=== PATIENT | female | born 1985 | race Caucasian/White ===

== ENCOUNTER 2024-05-25 19:58 | Emergency (ER) | payer SELFPAY ==
[2024-05-25 20:22] VITALS: BP 127/89; PULSE 122; RESP 18; TEMP 36.8; O2SAT 97; BMI 24.2
--- NOTE | 2024-05-25 20:35 | W.ED.GENADLT ---
HPI - General Adult General: Chief complaint: General Medical Stated complaint: bp check Time Seen by Provider: 05/25/24 20:29 Source: patient Mode of arrival: ambulatory Limitations: no limitations History of Present Illness: 38-year-old female who states that she just moved here does not with PCP and is out of her HCTZ prescription she states she takes 12.5 mg daily states she just needs a refill she has no other complaints at this time no medical complaints Associated symptoms: Deny chest pain, dyspnea, headache(s), nausea, rash or vomiting Related Data Previous Rx's Medication Instructions Recorded hydrochlorothiazide 12.5 mg tablet 12.5 mg PO DAILY #30 tabs 05/25/24 Allergies Allergy/AdvReac Type Severity Reaction Status Date / Time amoxicillin [From Augmentin] Allergy Unknown Verified 05/25/24 20:26 clavulanic acid Allergy Unknown Verified 05/25/24 20:26 [From Augmentin] Review of Systems Const: Denies: fever(s), chills, body aches or change in appetite ENMT: Denies: throat pain or dental pain Card: Denies: chest pain Resp: Denies: dyspnea GI: Denies: abdominal pain, nausea, vomiting or diarrhea Musc: Denies: neck pain or back pain Skin/Breast: Denies: rash Neuro: Denies: headache(s) Physical Exam Const: COMMON NORMALS: no acute distress, patient oriented x3 and healthy appearing HENMT: COMMON NORMALS: normocephalic and atraumatic HEAD & SCALP: normocephalic and atraumatic Eye: COMMON NORMALS: conjunctivae normal CONJUNCTIVA: Yes conjunctivae normal Neck/C-Spine: COMMON NORMALS: full ROM and supple Chest: COMMONS NORMALS: normal inspection of the chest Resp: COMMON NORMALS: normal respiratory effort Extremity: COMMON NORMALS: normal to inspection and full ROM Neuro: COMMON NORMALS: patient oriented x3, moves all extremities and no focal motor deficits Psych: COMMON NORMALS: mental status grossly normal, Normal thought process present and cooperative THOUGHT PROCESS: Normal thought process present Skin: COMMON NORMALS: no rashes or lesions noted and no wounds GENERAL SKIN EXAM: no rashes or lesions noted Course Vital Signs: Vital signs: Vital Signs Temperature 98.3 F 05/25/24 20:22 Pulse Rate 122 H 05/25/24 20:22 Respiratory Rate 18 05/25/24 20:22 Blood Pressure 127/89 05/25/24 20:22 Pulse Oximetry 97 05/25/24 20:22 Oxygen Delivery Me thod Room Air 05/25/24 20:22 MDM - General Adult Medical Decision Making Patient presents here with medication refill patient's well-appearing here has no medical complaints will refill HCTZ patient stable for discharge follow-up PCP return if worsening Medical Records I reviewed the patient's medical records. No radiology studies performed this visit Discharge Plan Discharge Patient Disposition: Home Clinical Impression: Medication refill Condition: Stable Prescriptions: New hydrochlorothiazide 12.5 mg tablet 12.5 mg PO DAILY Qty: 30 0RF Discharge Orders: Discharge ED (Routine); Ordered 05/25/24 Ordered By: Vy Anna Discharge Diet: Advance as tolerated Discharge Activity: Resume usual activity Patient Instructions: Medicine Refill (ED) Coding Level of Care Code ED Vegetable Washing Machine Operator for Edd Melchor
[2024-05-25 20:41] VITALS: BP 122/94; PULSE 127; RESP 16; O2SAT 94
== END 2024-05-25 20:42 | disposition home or self-care (01) ==
PROVIDERS: Emergency Provider Emergency Medicine
DX: Z76.0 Encounter for issue of repeat prescription (principal)
CPT/HCPCS: 99283

== ENCOUNTER 2024-09-23 08:05 | Emergency (ER) | payer MEDICAID, SELFPAY ==
[2024-09-23 08:28] VITALS: BP 144/89; PULSE 88; RESP 18; TEMP 36.7; O2SAT 99; BMI 24.2
--- NOTE | 2024-09-23 09:49 | US_ITS ---
WS: [id number] EARLY OBSTETRICAL ULTRASOUND (<14 WEEKS). HISTORY: vaginal bleeding in early COMPARISON: None available. Single intrauterine gestational sac is identified. Cardiac activity at 169 BPM. [place]-rump length christine sures 2.7 cm which corresponds to a gestation of 9w4d. Normal-appearing yolk sac and amnion demonstra justin. Large subchorionic hemorrhage. Complex subchorionic hemorrhage along the anterior gestational sa c extends over a length of at least 7.0 cm with a diameter of 0.9 cm. No free fluid. Normal size ovaries with no mass. US/US OB <= 14 weeks fetus [id number] IMPRESSION: 1. Single intrauterine gestation of 9w4d with an EDC of 04/24/2025. 2. Large subchorionic hemorrhage along the anterior gestational sac. Hemorrhag e measures 7.0 x 0.9 cm.
[2024-09-23 10:08] LABS: Bilirubin Urine Negative (Negative); Blood Urine 2+ (Negative); Glucose Urine UA Negative (Normal); Ketones Urine 1+ (Negative); Leukocyte Esterase Urine 1+ (Negative); Nitrate Urine Negative (Negative); Protein Urine Negative (Negative); Specific Gravity, Urine 1.015 (1.005-1.030); Urine Appearance Clear (CLEAR); Urine Color Yellow (Yellow); Urobilinogen Urine 0.2 mg/dL (Negative); pH Urine 6.5 (5-7)
--- NOTE | 2024-09-23 10:08 | ED_ITS ---
HPI - Female Genitourinary 2 General: Chief complaint: Vaginal Bleeding Stated complaint: spotting (10 wks preg) Time Seen by Provider: 09/23/24 08:36 History of Present Illness: 39-year-old female presents to the ER [facility] complaint of spotting and bleeding discharge just prior to arrival earlier this morning patient endorses she is roughly 10 weeks per dates she reports this is her seventh with no previous complications with her previous pregnancies. Patient denies any abdominal pain or flank pain or back pain. Patient presents to the ER with her significant other for further assessment and management Associated symptoms: Deny abdominal pain, headache(s) or nausea Related Data Home Medications Medication Instructions Recorded Confirmed vit no.95-ferrous 1 tab PO DAILY 09/23/24 09/23/24 fumarate 28 mg-folic acid 800 mcg tablet () Allergies Allergy/AdvReac Type Severity Reaction Status Date / Time amoxicillin [From Augmentin] Allergy Unknown Verified 05/25/24 20:26 clavulanic acid Allergy Unknown Verified 05/25/24 20:26 [From Augmentin] Review of Systems 2 General: Reports: 10 or more systems reviewed and unremarkable except in HPI and below Const: Denies: fever(s), chills, fatigue or malaise Eyes: Denies: change in vision or blurry vision Card: Denies: chest pain or palpitations Resp: Denies: dyspnea or productive cough GI: Denies: abdominal pain, nausea or vomiting : Reports: vaginal bleeding; Denies: flank pain Musc: Denies: extremity pain or extremity swelling Skin/Breast: Denies: rash or pruritus Neuro: Denies: headache(s) Psych: Denies: anxiety or depression Hubert/Lymph: Denies: easy bleeding All/Imm: Denies: urticaria, throat swelling or facial swelling Physical Exam 2 Const: COMMON NORMALS: no acute distress, patient oriented x3 and healthy appearing HENMT: COMMON NORMALS: normocephalic and atraumatic HEAD & SCALP: n ormocephalic and atraumatic Eye: COMMON NORMALS: Equal, round and reactive pupils present and EOMs intact bilaterally PUPIL: Yes Equal, round and reactive pupils present Neck/C-Spine: COMMON NORMALS: full ROM, supple and no JVD Lymph: LYMPHATIC: no lymphadenopathy noted Chest: COMMONS NORMALS: normal inspection of the chest and normal palpation of entire chest wall Resp: COMMON NORMALS: normal respiratory effort, No retractions and clear to auscultation bilaterally EFFORT & INSPECTION: Yes able to speak in complete sentences and Yes symmetric chest movement AUSCULTATION: clear to auscultation bilaterally Cardio: COMMON NORMALS: no JVD, regular rate and regular rhythm RATE: r egular rate RHYTHM: regular rhythm GI: COMMON NORMALS: Normal to inspection, nondistended, normoactive bowel sounds present, Soft to palpation and non-tender INSPECTION: Yes normal to inspection PALPATION: Yes Soft to palpation : COMMON NORMALS: Yes no CVA tenderness BLADDER/KIDNEY EXAM: Yes no CVA tenderness Back/Pelvis: COMMON NORMALS: no CVA tenderness Extremity: COMMON NORMALS: normal to inspection and full ROM Neuro: COMMON NORMALS: patient oriented x3, CN's II-XII intact bilaterally, moves all extremities and no focal motor deficits Psych: COMMON NORMALS: mental status grossly normal, Normal thought process present, cooperative and normal affect THOUGHT PROCESS: Normal thought process present Skin: COMMON NORMALS: no rashes or lesions noted GENERAL SKIN EXAM: no rashes or lesions noted Course 2 Vital Signs: Vital signs: Vital Signs Temperature 98.1 F 09/23/24 08:28 Pulse Rate 88 09/23/24 08:28 Respiratory Rate 18 09/23/24 08:28 Blood Pressure 144/89 09/23/24 08:28 Pulse Oximetry 99 09/23/24 08:28 Oxygen Delivery Me thod Room Air 09/23/24 08:28 MDM - Female Medical Decision Making Due to patient's symptoms and condition lab work and imaging will be obtained we will continue to follow. Patient was found to have a large subchorionic hemorrhage but IUP at approximately 9-1/2 weeks patient was dvised if her bleeding gets worse to return to the ER for further assessment and management in which otherwise to further follow-up with RESIDENTIAL MORTGAGE MANAGER for further eval Lab Data 09/23/24 10:07 09/23/24 10:07 Radiology Impressions Ultrasound 09/23/24 09:49 IMPRESSION: 1. Single intrauterine gestation of 9w4d with an EDC of 04/24/2025. 2. Large subchorionic hemorrhage along the anterior gestational sac. Hemorrhage measures 7.0 x 0.9 cm. Laboratory Results WBC 12.44 10^3/uL (3.29-11.43) H 09/23/24 10:07 RBC 4.50 10^6/uL (3.85-5.65) 09/23/24 10:07 Hgb 14.20 g/dL (11.27-16.99) 09/23/24 10:07 Hct 40.3 % (36-47) 09/23/24 10:07 MCV 89.6 fl (85-98) 09/23/24 10:07 MCH 31.6 pg (27-33) 09/23/24 10:07 MCHC 35.2 g/dL (30-55) 09/23/24 10:07 RDW 12.4 % (12.1-15.1) 09/23/24 10:07 Plt Count 363 10^3/cmm (157-399) 09/23/24 10:07 MPV 8.8 fL (7.4-10.4) 09/23/24 10:07 Neut % (Auto) 74.3 % 09/23/24 10:07 Lymph % (Auto) 16.8 % 09/23/24 10:07 Clarke % (Auto) 7.2 % 09/23/24 10:07 Eos % (Auto) 0.7 % 09/23/24 10:07 Baso % (Auto) 0.6 % 09/23/24 10:07 Neut # (Auto) 9.25 10^3/uL (1.8-7.7) H 09/23/24 10:07 Lymph # (Auto) 2.1 10^3/uL (0.8-4.8) 09/23/24 10:07 [place] # (Auto) 0.9 10^3/uL (0.2-0.9) 09/23/24 10:07 Eos # (Auto) 0.1 10^3/uL (0.0-0.8) 09/23/24 10:07 Baso # (Auto) 0.1 10^3/uL (0.0-0.1) 09/23/24 10:07 Nucleated RBC % (auto) 0 % 09/23/24 10:07 Nucleated RBCs # 0.0 /100WBC 09/23/24 10:07 Sodium 136 mmol/L (136-145) 09/23/24 10:07 Potassium 3.6 mmol/L (3.5-5.1) 09/23/24 10:07 Chloride 101 mmol/L (98-107) 09/23/24 10:07 Carbon Dioxide 23 mmol/L (22-29) 09/23/24 10:07 Anion Gap 15.6 (5-19) 09/23/24 10:07 BUN 13 mg/dL (6-20) 09/23/24 10:07 Creatinine 0.4 mg/dL (0.5-0.9) L 09/23/24 10:07 GFR Calculation 178.6 mL/min (90-130) H 09/23/24 10:07 Glucose 89 mg/dL (65-115) 09/23/24 10:07 Calculated Osmolality 282 mOsm/kg (285-295) L 09/23/24 10:07 Calcium 8.8 mg/dL (8.5-10.5) 09/23/24 10:07 Total Bilirubin 0.5 mg/dL (0.15-1.2) 09/23/24 10:07 AST 31 U/L (0-32) 09/23/24 10:07 ALT 48 U/L (0-33) H 09/23/24 10:07 Alkaline Phosphatase 35 U/L (35-105) 09/23/24 10:07 Total Protein 6.8 g/dL (6.6-8.7) 09/23/24 10:07 Albumin 4.1 g/dL (3.5-5.2) 09/23/24 10:07 Globulin 2.7 g/dL (1.3-4.6) 09/23/24 10:07 Ser , Semi-Qnt 115727.00 mIU/mL 09/23/24 10:07 Urine Color Yellow (Yellow) 09/23/24 10:00 Urine Appearance Clear (CLEAR) 09/23/24 10:00 Urine pH 6.5 (5-7) 09/23/24 10:00 Ur Specific [place] 1.015 (1.005-1.030) 09/23/24 10:00 Urine Protein Negative (Negative) 09/23/24 10:00 Urine Glucose (UA) Negative (Normal) 09/23/24 10:00 Urine Ketones 1+ (Negative) H 09/23/24 10:00 Urine Blood 2+ (Negative) A 09/23/24 10:00 Urine Nitrate Negative (Negative) 09/23/24 10:00 Urine Bilirubin Negative (Negative) 09/23/24 10:00 Urine Urobilinogen 0.2 mg/dL (Negative) 09/23/24 10:00 Ur Leukocyte Esterase 1+ (Negative) A 09/23/24 10:00 Urine RBC 0-2 /hpf (0-2) 09/23/24 10:00 Urine WBC 21-50 /hpf (0-5) H 09/23/24 10:00 Ur Squamous Epith Cells 0-5 /hpf (0-5) 09/23/24 10:00 Amorphous Sediment Not Reportable 09/23/24 10:00 Urine Bacteria None seen /hpf (NONE) 09/23/24 10:00 Hyaline Casts 0.40 /lpf 09/23/24 10:00 Blood Type A Positive 09/23/24 10:07 Rho(D) Type Rh positive 09/23/24 10:07 All radiology interpretation(s) finalized by discharge Discharge Plan Discharge Patient Disposition: Home Clinical Impression: Subchorionic hemorrhage in second trimester Condition: Stable Prescriptions: No Action PNV cmb#95-ferrous fumarate-FA [] 28 mg iron- 800 mcg Tablet 1 tab PO DAILY Discharge Orders: Discharge ED (Routine); Ordered 09/23/24 Ordered By: Naeem Coronado Discharge Diet: Regular Discharge Activity: Resume usual activity Patient Instructions: Subchorionic Hemorrhage (ED) Activity Restrictions/Additional Instructions: Please further follow-up with your RESIDENTIAL MORTGAGE MANAGER doctor in the next 22 weeks absolutely no vaginal intercourse until cleared by OB with strict pelvic rest if your bleeding increases or gets worse please return to the ER for further assessment and management. Coding Level of Care Code ED Equity Director for Edd Melchor
[2024-09-23 10:11] LABS: Add Urine Microscopic? YES; Bacteria Urine None Seen /hpf; RBC Urine 0-2 /hpf (0-2); Squamous Epithelial Cell Urine 0-5 /hpf (0-5); WBC Urine 21-50 /hpf (0-5)
[2024-09-23 10:13] LABS: Basophils # 0.1 10^3/uL (0.0-0.1); Basophils % 0.6 %; Eosinophils # 0.1 10^3/uL (0.0-0.8); Eosinophils % 0.7 %; Hematocrit 40.3 % (36-47); Lymphocytes # 2.1 10^3/uL (0.8-4.8); Lymphocytes % 16.8 %; Mean Corpuscular HGB Conc 35.2 g/dL (30-55); Mean Corpuscular Hemoglobin 31.6 pg (27-33); Mean Corpuscular Volume 89.6 fl (85-98); Mean Platelet Volume 8.8 fL (7.4-10.4); Monocytes # 0.9 10^3/uL (0.2-0.9); Monocytes % 7.2 %; Neutrophils # 9.25 10^3/uL (1.8-7.7); Neutrophils % 74.3 %; Nucleated Red Blood Cells % 0 %; Platelet Count 363 10^3/cmm (157-399); Red Cell Distribution Width 12.4 % (12.1-15.1); White Blood Count 12.44 10^3/uL (3.29-11.43)
[2024-09-23 10:23] LABS: Add Urine Culture? Yes
[2024-09-23 10:32] VITALS: BP 145/81; PULSE 86; O2SAT 98
[2024-09-23 10:58] LABS: Alanine Aminotransferase 48 U/L (0-33); Albumin Level 4.1 g/dL (3.5-5.2); Alkaline Phosphatase 35 U/L (35-105); Anion Gap 15.6 (5-19); Aspartate Amino Transferase 31 U/L (0-32); Blood Urea Nitrogen 13 mg/dL (6-20); Calcium 8.8 mg/dL (8.5-10.5); Carbon Dioxide 23 mmol/L (22-29); Chloride 101 mmol/L (98-107); Globulin 2.7 g/dL (1.3-4.6); Glomerular Filtration Rate 178.6 mL/min (90-130); Glucose 89 mg/dL (65-115); Osmolality Calculated 282 mOsm/kg (285-295); Potassium 3.6 mmol/L (3.5-5.1); Sodium 136 mmol/L (136-145); Total Bilirubin 0.5 mg/dL (0.15-1.2); Total Protein 6.8 g/dL (6.6-8.7)
[2024-09-23 12:03] VITALS: BP 140/88; PULSE 81; O2SAT 99
== END 2024-09-23 12:48 | disposition home or self-care (01) ==
PROVIDERS: Emergency Provider Emergency Medicine
DX: O20.8 Other hemorrhage in early pregnancy (principal); Z3A.09 9 weeks gestation of pregnancy
CPT/HCPCS: 76801; 80053; 81001; 84702; 85025; 86900; 87086; 99284

== ENCOUNTER → 2024-10-05 08:08 | Outpatient (BNVA) | payer MEDICAID, SELFPAY | PROVIDERS: Visit Provider Nurse Practitioner Women's Health | DX: N91.2 Amenorrhea, unspecified (principal); Z32.01 Encounter for pregnancy test, result positive; Z87.59 Personal history of other complications of pregnancy, childbirth and the puerperium | CPT/HCPCS: 81025 ==

== ENCOUNTER → 2024-10-12 15:23 | Outpatient (BNVA) | payer MEDICAID, SELFPAY | PROVIDERS: Visit Provider Nurse Practitioner Women's Health | DX: O46.8X2 Other antepartum hemorrhage, second trimester (principal) | CPT/HCPCS: 76801 ==

== ENCOUNTER → 2024-10-18 11:28 | Outpatient (BNVA) | payer MEDICAID, SELFPAY | PROVIDERS: Visit Provider Nurse Practitioner Women's Health | DX: O09.70 Supervision of high risk pregnancy due to social problems, unspecified trimester (principal); O09.299 Supervision of pregnancy with other poor reproductive or obstetric history, unspecified trimester; Z64.1 Problems related to multiparity | CPT/HCPCS: 80307; 81000; 84443; 85025; 86592; 86762; 86803; 86850; 86900; 87086; 87340; 87491; 87591; 87661; 87806 ==

== ENCOUNTER → 2024-10-19 00:01 | Outpatient (BNVA) | payer MEDICAID, SELFPAY | PROVIDERS: Visit Provider Nurse Practitioner Women's Health | DX: O09.72 Supervision of high risk pregnancy due to social problems, second trimester (principal) | CPT/HCPCS: 87522 ==

== ENCOUNTER → 2024-10-28 15:23 | Outpatient (BNVA) | payer MEDICAID, SELFPAY | PROVIDERS: Visit Provider Obstetrics & Gynecology | DX: O09.70 Supervision of high risk pregnancy due to social problems, unspecified trimester (principal) | CPT/HCPCS: 84315; 87624 ==

== ENCOUNTER → 2024-11-04 10:16 | Outpatient (BNVA) | payer MEDICAID, SELFPAY | PROVIDERS: Visit Provider Nurse Practitioner Women's Health | DX: F19.11 Other psychoactive substance abuse, in remission (principal); O09.70 Supervision of high risk pregnancy due to social problems, unspecified trimester | CPT/HCPCS: 80053 ==

== ENCOUNTER → 2024-11-23 14:02 | Outpatient (BNVA) | payer MEDICAID, SELFPAY | PROVIDERS: Visit Provider Nurse Practitioner Women's Health | DX: O09.70 Supervision of high risk pregnancy due to social problems, unspecified trimester (principal); O09.299 Supervision of pregnancy with other poor reproductive or obstetric history, unspecified trimester | CPT/HCPCS: 82105; 84315; 84550 ==

== ENCOUNTER → 2024-12-20 14:30 | Outpatient (BNVA) | payer MEDICAID, SELFPAY | PROVIDERS: Visit Provider Obstetrics & Gynecology | DX: O09.70 Supervision of high risk pregnancy due to social problems, unspecified trimester (principal); Z3A.22 22 weeks gestation of pregnancy | CPT/HCPCS: 76805 ==

== ENCOUNTER → 2024-12-28 15:59 | Outpatient (BNVA) | payer MEDICAID, SELFPAY | PROVIDERS: Visit Provider Obstetrics & Gynecology | DX: O09.70 Supervision of high risk pregnancy due to social problems, unspecified trimester (principal) | CPT/HCPCS: 84315 ==

== ENCOUNTER → 2025-01-16 14:33 | Outpatient (BNVA) | payer MEDICAID, SELFPAY | PROVIDERS: Visit Provider Obstetrics & Gynecology | DX: O09.70 Supervision of high risk pregnancy due to social problems, unspecified trimester (principal); O09.299 Supervision of pregnancy with other poor reproductive or obstetric history, unspecified trimester; Z34.90 Encounter for supervision of normal pregnancy, unspecified, unspecified trimester; O14.00 Mild to moderate pre-eclampsia, unspecified trimester | CPT/HCPCS: 80053; 84315; 85025 ==

== ENCOUNTER 2025-01-18 15:11 | Outpatient (CLI) | payer MEDICAID, SELFPAY ==
[2025-01-18 16:04] LABS: Total Volume, Urine 2950 mL
[2025-01-18 17:16] LABS: Urine Total Protein 4.3 mg/dL (0-150); Urine Total Protein 24 Hour 126.9 mg/24hr (0-150)
== END 2025-01-18 15:12 | disposition home or self-care (01) ==
LOC: LAB 15:14
PROVIDERS: Visit Provider Obstetrics & Gynecology
DX: O09.299 Supervision of pregnancy with other poor reproductive or obstetric history, unspecified trimester (principal); O14.00 Mild to moderate pre-eclampsia, unspecified trimester
CPT/HCPCS: 84156

== ENCOUNTER → 2025-01-26 13:08 | Outpatient (BNVA) | payer MEDICAID, SELFPAY | PROVIDERS: Visit Provider Obstetrics & Gynecology | DX: Z34.90 Encounter for supervision of normal pregnancy, unspecified, unspecified trimester (principal) | CPT/HCPCS: 84315 ==

== ENCOUNTER → 2025-01-30 13:56 | Outpatient (BNVA) | payer MEDICAID, SELFPAY | PROVIDERS: Visit Provider Obstetrics & Gynecology | DX: O16.9 Unspecified maternal hypertension, unspecified trimester (principal) | CPT/HCPCS: 84315 ==

== ENCOUNTER → 2025-02-16 14:07 | Outpatient (BNVA) | payer MEDICAID, SELFPAY | PROVIDERS: Visit Provider Nurse Practitioner Women's Health | DX: Z34.90 Encounter for supervision of normal pregnancy, unspecified, unspecified trimester (principal) | CPT/HCPCS: 82950; 84315 ==

== ENCOUNTER → 2025-03-07 15:37 | Outpatient (BNVA) | payer MEDICAID, SELFPAY | PROVIDERS: Visit Provider Obstetrics & Gynecology | DX: O09.299 Supervision of pregnancy with other poor reproductive or obstetric history, unspecified trimester (principal); O09.70 Supervision of high risk pregnancy due to social problems, unspecified trimester; O16.9 Unspecified maternal hypertension, unspecified trimester; Z3A.34 34 weeks gestation of pregnancy | CPT/HCPCS: 76816 ==

== ENCOUNTER → 2025-03-13 15:32 | Outpatient (BNVA) | payer MEDICAID, SELFPAY | PROVIDERS: Visit Provider Obstetrics & Gynecology | DX: O09.293 Supervision of pregnancy with other poor reproductive or obstetric history, third trimester (principal) | CPT/HCPCS: 84315 ==

== ENCOUNTER 2025-03-16 11:09 | Outpatient (CLI) | payer MEDICAID, SELFPAY ==
[2025-03-16 12:32] LABS: Total Volume, Urine 2550 mL
[2025-03-16 12:36] LABS: Urine Total Protein 24 Hour 127.5 mg/24hr (0-150)
== END 2025-03-16 11:10 | disposition home or self-care (01) ==
PROVIDERS: Visit Provider Obstetrics & Gynecology
DX: O16.9 Unspecified maternal hypertension, unspecified trimester (principal)
CPT/HCPCS: 84156

== ENCOUNTER 2025-03-16 12:07 | Outpatient (CLI) | payer MEDICAID, SELFPAY ==
--- NOTE | 2025-03-16 12:11 | US_ITS ---
WS: [id number] BIOPHYSICAL PROFILE AMNIOTIC FLUID HISTORY: nonreactive nst at clinic COMPARISON: 03/07/2025 position: position is not documented. Cardiac activity: 142 bpm. Cervix: Limited visualization. Placenta: Posterior, no previa or abruption. Placenta grade: 2 Parameters are as follows: Breathin Movement: 2 Tone: 2 Fluid volume: 2 Amniotic Fluid Index: 12.5 cm. US/[place] [address]280 IMPRESSION: 1. Biophysical profile score: 8/8. 2. Normal amniotic fluid. 3. Poorly visualized cervix. 4. position not documented.
[2025-03-16 12:15] VITALS: RESP 18; TEMP 36.9
[2025-03-16 12:16] VITALS: BP 130/80; PULSE 86
[2025-03-16 12:31] VITALS: BP 121/76; PULSE 88
[2025-03-16 12:35] VITALS: BMI 34.1
[2025-03-16 12:46] VITALS: BP 119/80; PULSE 86
[2025-03-16 13:01] VITALS: BP 119/79; PULSE 87
== END 2025-03-16 13:13 | disposition home or self-care (01) ==
LOC: OPOB 12:08 → OBGYN 12:08
PROVIDERS: Visit Provider Obstetrics & Gynecology
DX: O13.9 Gestational [pregnancy-induced] hypertension without significant proteinuria, unspecified trimester (principal); Z3A.00 Weeks of gestation of pregnancy not specified
CPT/HCPCS: 59025; 76819; 99211

== ENCOUNTER → 2025-03-20 08:23 | Outpatient (BNVA) | payer MEDICAID, SELFPAY | PROVIDERS: Visit Provider Obstetrics & Gynecology | DX: Z34.90 Encounter for supervision of normal pregnancy, unspecified, unspecified trimester (principal) | CPT/HCPCS: 84315 ==

== ENCOUNTER 2025-03-23 09:35 | Outpatient (CLI) | payer MEDICAID, SELFPAY ==
[2025-03-23] VITALS (8 sets, daily range): BP systolic 132–141; BP diastolic 84–89; PULSE 86–103; RESP 18
== END 2025-03-23 10:54 | disposition home or self-care (01) ==
LOC: OPOB 09:38 → OBGYN 09:38
PROVIDERS: Visit Provider Obstetrics & Gynecology
DX: O13.9 Gestational [pregnancy-induced] hypertension without significant proteinuria, unspecified trimester (principal); Z3A.00 Weeks of gestation of pregnancy not specified
CPT/HCPCS: 59025

== ENCOUNTER → 2025-03-27 13:24 | Outpatient (BNVA) | payer MEDICAID, SELFPAY | PROVIDERS: Visit Provider Nurse Practitioner Women's Health | DX: O16.9 Unspecified maternal hypertension, unspecified trimester (principal); O09.893 Supervision of other high risk pregnancies, third trimester; Z3A.36 36 weeks gestation of pregnancy | CPT/HCPCS: 76816; 76819; 84315; 87081 ==

== ENCOUNTER → 2025-04-03 12:39 | Outpatient (BNVA) | payer MEDICAID, SELFPAY | PROVIDERS: Visit Provider Obstetrics & Gynecology | DX: O40.9XX0 Polyhydramnios, unspecified trimester, not applicable or unspecified (principal) | CPT/HCPCS: 76819 ==

== ENCOUNTER → 2025-04-06 14:25 | Outpatient (BNVA) | payer MEDICAID, SELFPAY | PROVIDERS: Visit Provider Obstetrics & Gynecology | DX: O23.599 Infection of other part of genital tract in pregnancy, unspecified trimester (principal); A59.01 Trichomonal vulvovaginitis | CPT/HCPCS: 87661 ==

== ENCOUNTER → 2025-04-10 15:11 | Outpatient (BNVA) | payer MEDICAID, SELFPAY | PROVIDERS: Visit Provider Obstetrics & Gynecology | DX: O09.299 Supervision of pregnancy with other poor reproductive or obstetric history, unspecified trimester (principal); O32.1XX0 Maternal care for breech presentation, not applicable or unspecified; Z3A.38 38 weeks gestation of pregnancy | CPT/HCPCS: 76819; 84315 ==

== ENCOUNTER → 2025-04-17 13:33 | Outpatient (BNVA) | payer MEDICAID, SELFPAY | PROVIDERS: Visit Provider Obstetrics & Gynecology | DX: O16.9 Unspecified maternal hypertension, unspecified trimester (principal) | CPT/HCPCS: 76816; 76819; 84315 ==

== ENCOUNTER 2025-04-24 17:36 | Outpatient (CLI) | payer MEDICAID, SELFPAY ==
[2025-04-24] VITALS (8 sets, daily range): BP systolic 134–146; BP diastolic 86–108; PULSE 93–117; RESP 16; O2SAT 97; BMI 33.9
[2025-04-24 18:51] LABS: Glucose Urine UA Negative (Normal); Nitrate Urine Negative (Negative); Specific Gravity, Urine 1.007 (1.005-1.030)
[2025-04-24 18:52] LABS: Hematocrit 34.6 % (36-47); Hemoglobin 11.80 g/dL (11.27-16.99); Mean Corpuscular HGB Conc 34.1 g/dL (30-55); Mean Corpuscular Hemoglobin 32.0 pg (27-33); Mean Corpuscular Volume 93.8 fl (85-98); Nucleated Red Blood Cells % 0 %; Platelet Count 384 10^3/cmm (157-399); Red Blood Count 3.69 10^6/uL (3.85-5.65); White Blood Count 12.70 10^3/uL (3.29-11.43)
[2025-04-24 18:53] LABS: Add Urine Microscopic? YES
[2025-04-24 18:58] LABS: PCP Screen Urine Negative (Negative)
[2025-04-24 19:04] LABS: Alanine Aminotransferase 12 U/L (0-33); Albumin Level 3.2 g/dL (3.5-5.2); Alkaline Phosphatase 163 U/L (35-105); Blood Urea Nitrogen 6 mg/dL (6-20); Calcium 8.6 mg/dL (8.5-10.5); Carbon Dioxide 24 mmol/L (22-29); Chloride 104 mmol/L (98-107); Creatinine Clr Calc Pharmacy 152.9372; Globulin 3.1 g/dL (1.3-4.6); Glucose 89 mg/dL (65-115); Osmolality Calculated 287 mOsm/kg (285-295); Sodium 140 mmol/L (136-145); Total Protein 6.3 g/dL (6.6-8.7); Uric Acid 5.3 mg/dL (2.4-5.7)
[2025-04-24 19:11] LABS: Anion Gap 15.9 (5-19); Aspartate Amino Transferase 27 U/L (0-32); Potassium 3.9 mmol/L (3.5-5.1); UPRO/UCREAT Ratio 0.18 mg/mg CR
== END 2025-04-24 19:55 | disposition home or self-care (01) ==
LOC: OPOB 17:40 → OBGYN 17:41
PROVIDERS: Visit Provider Obstetrics & Gynecology
DX: O13.9 Gestational [pregnancy-induced] hypertension without significant proteinuria, unspecified trimester (principal); Z3A.00 Weeks of gestation of pregnancy not specified
CPT/HCPCS: 36415; 59025; 80053; 80306; 81001; 82570; 83615; 84156; 84315; 84550; 85025; 99211

== ENCOUNTER 2025-04-25 15:56 | Observation (INO) | payer MEDICAID, SELFPAY ==
[2025-04-25] VITALS (37 sets, daily range): BP systolic 105–168; BP diastolic 55–110; PULSE 75–115; RESP 18
[2025-04-25 15:17] LABS: Hematocrit 36.1 % (36-47); Hemoglobin 12.10 g/dL (11.27-16.99); Mean Corpuscular HGB Conc 33.5 g/dL (30-55); Mean Corpuscular Hemoglobin 31.3 pg (27-33); Mean Corpuscular Volume 93.5 fl (85-98); Nucleated Red Blood Cells % 0 %; Platelet Count 386 10^3/cmm (157-399); Red Blood Count 3.86 10^6/uL (3.85-5.65); White Blood Count 12.87 10^3/uL (3.29-11.43)
[2025-04-25 15:22] LABS: Glucose Urine UA Negative (Normal); Nitrate Urine Negative (Negative); Specific Gravity, Urine 1.014 (1.005-1.030)
[2025-04-25 15:24] LABS: Add Urine Microscopic? YES
[2025-04-25 15:28] LABS: PCP Screen Urine Negative (Negative)
[2025-04-25 15:36] LABS: Alanine Aminotransferase 12 U/L (0-33); Albumin Level 3.3 g/dL (3.5-5.2); Alkaline Phosphatase 175 U/L (35-105); Anion Gap 15.6 (5-19); Aspartate Amino Transferase 21 U/L (0-32); Blood Urea Nitrogen 9 mg/dL (6-20); Calcium 8.8 mg/dL (8.5-10.5); Carbon Dioxide 25 mmol/L (22-29); Chloride 106 mmol/L (98-107); Creatinine Clr Calc Pharmacy 155.2111; Globulin 3.1 g/dL (1.3-4.6); Glucose 96 mg/dL (65-115); Osmolality Calculated 295 mOsm/kg (285-295); Potassium 3.6 mmol/L (3.5-5.1); Sodium 143 mmol/L (136-145); Total Protein 6.4 g/dL (6.6-8.7); Uric Acid 5.4 mg/dL (2.4-5.7)
[2025-04-25 15:43] LABS: UPRO/UCREAT Ratio 0.15 mg/mg CR
[2025-04-25] MEDS: oxytocin 30 UNIT/500 ML BAG IV (16:30)
--- NOTE | 2025-04-25 17:25 | PC.NURSE ---
Discussed with pt that Dr. Lee would like to start magnesium sulfate due to her severely elevated blood pressures. Explained that her blood pressure are in a severe range which puts her at risk for having seizures or even stroke. Discussed the purpose of magnesium as a preventative for seizures. Explained the need for dejesus catheter to closely monitor urine output. At this time pt would like to decline the use of magnesium and would like to try non pharmacological options to lower her blood pressure such as decreasing environmental stimulus and relaxation. MD notified of patients decision.
[2025-04-25 17:32] LABS: Neisseria Gonorrhea NOT DETECTED (Negative)
--- NOTE | 2025-04-25 17:38 | PM.OBGYHP ---
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 Tolbert is a 39 year old patient with LMP of unknown, PANFILO 04/24/25 based off first ultrasound, placing her at 40-1/7 weeks today. Came today for NST after leaving yesterday AMA. It was recommended she stayed for elective induction yesterday due to >40wks,hx of preeclampsia and borderline BPs . Labs have remained negative so far including today. When she arrived today severe range BPs were recorded within 30 minutes. Severe pressure protocol triggered and initial IV pressor provided. Pt declined Mg use after being educated about its use including risks and benefits. NST reactive with occasional contractions but no decelerations. Labetalol po initiated to a daily dose start of 100mg bid . Patient has agreed to stay for induction. Repeat BPs after IV labetalol not in severe range. c/o swelling no headache, blurry vision, abdominal pain + movements HEPATITIS C POSITIVE - Hep C antibody and RNA positive, she was not aware of infection prior to testing - Seen by ID on 01/19/2023, dx with chronic hep c infection - Discussed delaying treatment until after delivery due to unknown safety of treatment during . Patient is ok with this. - LFTs WNL SUPERVISION OF HIGH RISK DUE TO SOCIAL PROBLEMS - Hx of drug use, reports last use on 01/19/23 - Hep C positive - Smokes 1/2 PPD HX OF PRE-E IN PRIOR - Hx of pre-e in prior pregnancies x 6 all delivered at 40 weeks and no medication required for BP management per patient - Reports that she had seizure 3 months after delivery of her 7th child. - Early CMP and 24 hr done and WNL - Smokes 1/2 pack a day at this time - Started on 81 mg of aspirin once daily at 12 weeks - Denies headaches, visual changes, or RUQ at this time - BP WNL so far during this TRICHOMONAS INFECTION - + Trich and treated on 11/24/24 - Need KAREEM POBHx: x seven; h/o preeclampsia at term with most of her pregnancies Allergies amoxicillin (From Augmentin) Allergy (Verified 04/24/25 14:19) Unknownbee venom protein (honey bee) Allergy (Verified 04/24/25 14:19) ALGY-Anaphylaxisclavulanic acid (From Augmentin) Allergy (Verified 04/24/25 14:19) Unknown Home Medications - Last Reconciled 04/24/25 by Ansley Crowe CMA aspirin 81 mg PO DAILY PNV,calcium 09-nksw-xsyia acid 27 mg iron- 1 mg (M-Edward Plus) TAKE 1 TABLET BY MOUTH EVERY DAY promethazine 12.5 mg PO TID PRN Present Details : 11 Para: 7 Labs Rubella: Immune RPR: Negative GBS: Negative Medications/Allergies Home Medications ?Medication ?Instructions ?Recorded ?Confirmed ?Last Taken ?Type aspirin 81 mg tablet,delayed 81 mg PO DAILY 11/29/24 04/25/25 04/25/25 05:00 History release promethazine 12.5 mg tablet 12.5 mg PO TID PRN nausea and 01/04/25 04/25/25 04/25/25 Rx vomiting #60 tabs vitamins with calcium See Rx Instructions .Route 02/27/25 04/25/25 04/25/25 Rx no.72-iron 27 mg-folic acid 1 mg .COMPLEX #90 tabs tablet (M- Plus) Allergies Allergy/AdvReac Type Severity Reaction Status Date / Time amoxicillin (From Augmentin) Allergy Unknown Verified 04/25/25 17:09 bee venom protein (honey bee) Allergy ALGY-Anaphy Verified 04/25/25 17:09 laxis clavulanic acid (From Allergy Unknown Verified 04/25/25 17:09 Augmentin) 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 CURB BUILDER PFSH: Family History Other Adopted Social History Smoking and tobacco/nicotine status: current every day tobacco/nicotine user (1/2 ppd) Personal Safety: Do you feel safe at home: Yes Victim of physical abuse: No Victim of emotional abuse: No Victim of sexual abuse: No Would you like help information on resources?: No History History History 11 Term 7 0 Miscarriages/Ectopic 3 Living Children 7 Care PANIFLO Calculator Estimated Delivery Date Method Current WG Current Estimate 04/24/25 Ultrasound #1 40w 2d Specific Issues/Plans SUPERVISION OF HIGH RISK NAUSEA AND VOMITING: promethazine sent to pharmacy HX OF DRUG USE HEPATITIS C POSITIVE HX OF PREECLAMPSIA IN PRIOR PREGNANCIES ADVANCED MATERNAL AGE: genetic screening and early gct WNL GRAND MULTIPARITY: X 7 HX OF RECURRENT MISCARRIAGE: SAB X 3 TRICHOMONAS INFECTION: + on 11/24/24, flagyl sent for treatment SMOKES 1/2 PPD: encouraged to quit SUBCHORIONIC HEMORRHAGE: 10/12/24 US: 4.6 x 0.8 x 2.2 cm, slightly decreased in size and with a less complex appearance compared to September 23, 2024 09/23/24 US: Large subchorionic hemorrhage along the anterior gestational sac. Hemorrhage measures 7.0 x 0.9 cm. Vitals/I&O/Wt Last Vital Signs Pulse 93 04/25/25 17:28 Resp 18 04/25/25 14:07 BP 159/102 04/25/25 17:28 O2 Del Method Room Air 04/25/25 16:25 04/25/25 04/25/25 04/25/25 06:59 14:59 22:59 Intake Total 2.50 / 2.50 Balance 2.50 / 2.50 Weight last 48 hrs Weight 170 lb 8 oz Physical Exam Const: COMMON NORMALS: no acute distress and patient oriented x3 Data 04/25/25 15:00 04/25/25 15:00 Results Labs OB ([facility]): Obstetrics US 04/17/25 Obstetrics US/Biophysical Profile 04/10/25 Blood Type A Positive 04/25/25 Antibody Screen Negative 04/25/25 Hct, (36-47) 36.1 % 04/25/25 Hgb, (11.27-16.99) 12.10 g/dL 04/25/25 Rho(D) Type Rh positive 04/25/25 Plt Count, (157-399) 386 10^3/cmm 04/25/25 Hep Bs Antigen, (Nonreactive) Non-reactive 10/18/24 Hepatitis C Antibody, (Nonreactive) Reactive H 10/18/24 Rubella IgG Antibody, (0.0-10.0) 106.5 IU/mL H 10/18/24 RPR, (Nonreactive) Nonreactive 10/18/24 HIV 1&2 Ab & HIV 1 Ag, (Non-Reactiv) Non-reactive 10/18/24 TSH, (0.27-4.20) 1.42 uIU/mL 10/18/24 Glucose 1 Hr 50 gm, (85-140) 122 mg/dL 02/16/25 Uric Acid, (2.4-5.7) 5.4 mg/dL 04/25/25 Ser , Semi-Qnt 151552.00 mIU/mL 09/23/24 HCG, Qual, (Negative) Positive H 10/05/24 Urine Opiates Screen, (Negative) Negative ng/mL 04/25/25 Ur Barbiturates Screen, (Negative) Negative ng/mL 04/25/25 Ur Phencyclidine Scrn, (Negative) Negative ng/mL 04/25/25 Ur Amphetamines Screen, (Negative) Negative ng/mL 04/25/25 U Benzodiazepines Scrn, (Negative) Negative ng/mL 04/25/25 Urine Cocaine Screen, (Negative) Negative ng/mL 04/25/25 U Marijuana (THC) Screen, (Negative) Positive ng/mL H 04/25/25 Micro Urine Specimen 10/18/24 Pap Smear Interpret See note 10/28/24 A&P PDMP PDMP Reviewed: Not Reviewed Attestations Medical Necessity Statement*: Induction of labor over 40 wks with elevated blood pressures in patient with advanced maternal age.Care expected to cross 2 midnights. Coding Level of Care Code Acute Code for Edd Melchor
[2025-04-26] VITALS (68 sets, daily range): BP systolic 98–160; BP diastolic 57–100; PULSE 67–96; RESP 15–16; TEMP 36.6–36.7
--- NOTE | 2025-04-26 16:50 | P.ANESASSM_ITS ---
Pre-Anesthetic Assessment Height/Weight: Height 1.5 m Weight 77.337 kg Temp Pulse Resp BP O2 Del Method 98.0 F 85 15 160/100 Room Air 04/26/25 16:00 04/26/25 16:43 04/26/25 16:00 04/26/25 16:43 04/25/25 16:25 Preop Diagnosis: IUP epidural Familial anesthetic complications: none Was Beta Trell taken within 24 hours: Yes Was Clonidine taken within 24 hours: N/A Social Tobacco and No alcohol 1/2 ppd, MJ smoker pack(s) per day Exam alert and oriented x 3 Airway Submandibular: within normal limits Cervical ROM: within normal limits Mallampati: Class II Comments: Comments: missing, poor dentition History/ROS No significant history except as noted CV/HEM Hypertension Neuropsych Seizure ( many years ago coming off xanax ) Anesthetic Plan ASA status: 3 Anesthesia: Anesthesia Evaluation and Regional (specify below) Risk of > 500 ml blood loss (7ml/kg in children): Yes, adequate IV access and fluids planned Medications/Allergies Home Medications ?Medication ?Instructions ?Recorded ?Confirmed ?Last Taken ?Type aspirin 81 mg tablet,delayed 81 mg PO DAILY 11/29/24 0 04/25/25 04/25/25 05:00 History release promethazine 12.5 mg tablet 12.5 mg PO TID PRN nausea and 01/04/25 04/25/25 04/25/25 Rx vomiting #60 tabs vitamins with calcium See Rx Instructions .[place] 02/27/25 04/25/25 04/25/25 Rx no.72-iron 27 mg-folic acid 1 mg .COMPLEX #90 tabs tablet (M-Edward Plus) Allergies Allergy/AdvReac Type Severity Reaction Status Date / Time amoxicillin (From Augmentin) Allergy Unknown Verified 04/25/25 17:09 bee venom protein (honey bee) Allergy ALGY-Anaphy Verified 04/25/25 17:09 laxis clavulanic acid (From Allergy Unknown Verified 04/25/25 17:09 Augmentin) Current Medications Generic Name Dose Route Start Last Admin Trade Name Freq PRN Reason Stop Dose Admin Acetaminophen 650 mg 04/25/25 15:51 04/26/25 16:32 Acetaminophen 325 Mg Tablet PO 650 mg Q6H PRN Administration Mild pain or temp > 100.4 Dextrose/Lactated Ringer's 1,000 mls @ 125 mls/hr 04/25/25 16:00 04/26/25 16:40 Dextrose 5%-Lactated Ringers IV 0 mls/hr .Q8H KIERSTEN Infusion Oxytocin 30 unit in 500 mls @ 1 mls/hr 04/25/25 16:00 04/26/25 16:35 Pitocin IV 0 milliunit/min .Q24H KIERSTEN 0 mls/hr Protocol Titration 1 MILLIUNIT/MIN Labetalol HCl 200 mg 04/26/25 09:00 04/26/25 08:24 Labetalol 200 Mg Tablet PO 200 mg BID KIERSTEN Administration PFSH Anesthesia Family History Other Adopted Social History Smoking and tobacco/nicotine status: current every day tobacco/nicotine user (1/2 ppd) Female Reproductive History : 11 Data Anesthesia 04/25/25 15:00 04/25/25 15:00 Short CBC 04/25/25 Range/Units 15:00 WBC 12.87 H (3.29-11.43) 10^3/uL Hgb 12.10 (11.27-16.99) g/dL Hct 36.1 (36-47) % MCV 93.5 (85-98) fl Plt Count 386 (157-399) 10^3/cmm Neut % (Auto) 75.9 % Neut # (Auto) 9.76 H (1.8-7.7) 10^3/uL BMP 04/25/25 15:00 Sodium 143 Potassium 3.6 Chloride 106 Carbon Dioxide 25 BUN 9 Creatinine 0.6 Glucose 96 Calcium 8.8 Liver Function 04/25/25 Range/Units 15:00 Total Bilirubin 0.3 (0.15-1.2) mg/dL AST 21 (0-32) U/L ALT 12 (0-33) U/L Alkaline Phosphatase 175 H (35-105) U/L Albumin 3.3 L (3.5-5.2) g/dL Urine 04/25/25 Range/Units 15:00 Urine Color Yellow (Yellow) Urine Appearance Cloudy A (CLEAR) Urine pH 6.5 (5-7) Ur Specific [place] 1.014 (1.005-1.030) Urine Protein Negative (Negative) Urine Glucose (UA) Negative (Normal) Urine Ketones Trace (Negative) Urine Nitrate Negative (Negative) Urine Bilirubin Negative (Negative) Ur Leukocyte Esterase 2+ A (Negative) Urine RBC 0-2 (0-2) /hpf Urine WBC 51-100 H (0-5) /hpf Blood Bank 04/25/25 15:00 Blood Type A Positive Rho(D) Type Rh positive Antibody Screen Negative
[2025-04-27 09:01] LABS: High Risk PP Hemorrhage BBK Notified
[2025-05-04 09:27] LABS: High Risk PP Hemorrhage BBK Notified
== END 2025-04-26 18:07 | disposition home or self-care (01) ==
LOC: OPOB 15:56 → OBGYN 16:38
PROVIDERS: Admitting Provider Obstetrics & Gynecology; Visit Provider Obstetrics & Gynecology
DX: O13.9 Gestational [pregnancy-induced] hypertension without significant proteinuria, unspecified trimester (principal); Z3A.00 Weeks of gestation of pregnancy not specified
CPT/HCPCS: 12345; 36415; 59025; 80053; 80306; 81001; 82570; 83615; 84156; 84550; 85025; 86850; 86900; 87491; 87591; 99211; G0378; J2590; J7121; J9999

== ENCOUNTER 2025-04-29 09:30 | Inpatient (IN) | payer MEDICAID, SELFPAY ==
[2025-04-29] VITALS (44 sets, daily range): BP systolic 103–171; BP diastolic 56–107; PULSE 68–114; TEMP 36.4–36.9; O2SAT 93–100; BMI 34.1
[2025-04-29 10:27] LABS: Hematocrit 36.2 % (36-47); Hemoglobin 12.20 g/dL (11.27-16.99); Mean Corpuscular HGB Conc 33.7 g/dL (30-55); Mean Corpuscular Hemoglobin 31.3 pg (27-33); Mean Corpuscular Volume 92.8 fl (85-98); Nucleated Red Blood Cells % 0 %; Platelet Count 396 10^3/cmm (157-399); Red Blood Count 3.90 10^6/uL (3.85-5.65); White Blood Count 16.27 10^3/uL (3.29-11.43)
[2025-04-29 10:32] LABS: UPRO/UCREAT Ratio 0.25 mg/mg CR
[2025-04-29 10:51] LABS: Alanine Aminotransferase 10 U/L (0-33); Albumin Level 3.2 g/dL (3.5-5.2); Alkaline Phosphatase 194 U/L (35-105); Anion Gap 16.0 (5-19); Aspartate Amino Transferase 18 U/L (0-32); Blood Urea Nitrogen 6 mg/dL (6-20); Calcium 8.9 mg/dL (8.5-10.5); Carbon Dioxide 22 mmol/L (22-29); Chloride 103 mmol/L (98-107); Creatinine Clr Calc Pharmacy 153.8463; Globulin 3.5 g/dL (1.3-4.6); Glucose 77 mg/dL (65-115); Osmolality Calculated 280 mOsm/kg (285-295); Potassium 4.0 mmol/L (3.5-5.1); Sodium 137 mmol/L (136-145); Total Protein 6.7 g/dL (6.6-8.7); Uric Acid 5.1 mg/dL (2.4-5.7)
[2025-04-29 10:56] LABS: PCP Screen Urine Negative (Negative)
[2025-04-29] MEDS: ROPivacaine syringe 100 MG/50 ML SYRINGE 10 MG EPIDURAL (11:37)
--- NOTE | 2025-04-29 11:49 | P.ANESUD_ITS ---
Pre-Anesthetic Update Pre-Anesthetic Assessment: Date of Surgery/Procedure: 04/29/25 Preop Umu gnosis: Active Labor Proposed Procedure: Labor Epidural Any changes to Pre-Anesthetic Assessment?: No Changes from Pre- Anesthetic Assessment: elevated WBC no active fever or signs of infection. Last Intake: clears - current meal >8 hours Labs Last 48hrs: Short CBC 04/29/25 04/29/25 Range/Units 09:45 10:15 WBC Cancelled 16.27 H Hgb Cancelled 12.20 Hct Cancelled 36.2 MCV Cancelled 92.8 Plt Count Cancelled 396 Neut % (Auto) Cancelled 81.2 Neut # (Auto) Cancelled 13.21 H BMP 04/29/25 04/29/25 09:45 10:15 Sodium Cancelled 137 Potassium Cancelled 4.0 Chloride Cancelled 103 Carbon Dioxide Cancelled 22 BUN Cancelled 6 Creatinine Cancelled 0.6 Glucose Cancelled 77 Calcium Cancelled 8.9 Liver Function 04/29/25 04/29/25 Range/Units 09:45 10:15 Total Bilirubin Cancelled 0.4 AST Cancelled 18 ALT Cancelled 10 Alkaline Phosphata se Cancelled 194 H Albumin Cancelled 3.2 L Blood Bank 04/29/25 10:15 Blood Type A Positive Rho(D) Type Rh positive Antibody Screen Negative Vitals: Pulse Rate 78 04/29/25 11:43 Blood Pressure 145/94 04/29/25 11:43 Pulse Oximetry 98 04/29/25 11:34 Exam: Pre-Anes Outpt Exam: alert, oriented x 3, clear to auscultation bilaterally and regular rate & rhythm Anesthesia Procedures Epidural: Time Out Performed: Yes Consents Signed: Procedure Consent Consent: requested by attending/covering physician, from patient, risks and benefits reviewed and patient agrees to proceed Lumbar Level: L3-L4 Epidural position: sitting Epidural procedure: sterile prep of area, 1% lidocaine to numb the area, negative for paresthesia passed, test dose given, 1.5% xylocaine 1:200k epi (5 ml), placed PCEA, no systemic response, sterile dressing applied, L.U.D. no apparent complications and 0.2% Ropiavacaine @ mls/hr (10ml/hr) Additional Comments: MEGHANN at 7cm CSE performed 0.25% Bupivicaine given 0.6ml relief verbalized from patient catheter threaded to 12cm patient connected to epidural pump.
--- NOTE | 2025-04-29 13:05 | PC.NURSE ---
Call to Aide Blood CRNA to report pt uncomfortable. Multiple boluses given and reposition changes. Pt reports pressure and pain 5-6/10. Received orders to turn epidural pump up to 13.
[2025-04-29] MEDS: ROPivacaine syringe 100 MG/50 ML SYRINGE 13 MG EPIDURAL (14:03)
[2025-04-29] MEDS: oxytocin 30 UNIT/500 ML BAG 600 UNIT IV (14:57)
--- NOTE | 2025-04-29 15:07 | PM.OPHPUD ---
Labor & Delivery H&P Update Date of Procedure: April 29, 2025 Date H&P Performed: 04/26/25 Changes to previous documentation: Patient now with 40 weeks 5 days gestational age. Patient coming in with complaint of leaking fluid of less than 6 hours ago, nitrazine positive. Pelvic exam with dilation of 3 cm 85% effacement -2 vertex. Patient denies pelvic pain fever chills nausea or vomiting. Admission Diagnosis: Preop diagnosis: Active Labor
--- NOTE | 2025-04-29 15:13 | P.PCNOB_ITS ---
Delivery Note: Date of delivery: April 29, 2025 Pre-delivery diagnoses: Advanced maternal age 40 weeks 5 days gestational age History of preeclampsia Hepatitis C positive History of positive STD, trach, treated on 11/24/2024 Smoker during Post-delivery diagnoses: Advanced maternal age 40 weeks 5 days gestational age History of preeclampsia Hepatitis C positive History of positive STD, trach, treated on 11/24/2024 Smoker during Baby boy 8 8 approximately 9 pounds, meconium stain fluid. Procedure: Normal spontaneous vaginal delivery at term without augmentation after epidural. Delivering Physician: Jesus BILL Findings: EBL 275 mL Baby boy 8 8 approximately 9 pounds, meconium stain fluid. Pre-Delivery Course: Uncomplicated Delivery: Patient is a 39year-old , admitted at 40 5/7 weeks gestation due to SROM at home. Cervix was 3cm dilated, 85% effaced, and head at -2 station upon ad mission. GBS negative. Rh positive.Patient received an epidural early in labor. Labor progressed well, with cervical dilation reaching 10 cm and the head descending to +2 station. The rest of the body followed without difficulty. AF with moderate to heavy meconium staining. The baby is a healthy male, weighing around 9 lbs, with scores of 8 at 1 minute and 8 at 5 minutes. The placenta was delivered spontaneously and intact after one minute of delayed cord clamping. Estimated blood loss was 275 mL. The patient tolerated the procedure well and is currently stable in the recovery room. No lacerations seen on inspection of perineum and vagina. Minimal bleeding noted. History History History 11 Term 7 0 Miscarriages/Ectopic 3 Living Children 7 A&P PDMP PDMP Reviewed: Not Reviewed Coding Level of Care Code Acute Code for Chg Fwd
[2025-04-29] MEDS: benzocaine-menthol 78 gm Canister 1 SPRAY TOPICAL (16:09)
[2025-04-30 02:40] VITALS: BP 144/82; PULSE 88; O2SAT 97
[2025-04-30] MEDS: HYDROcodone-acetaminophen 5-325 mg Tablet PO (04:50)
[2025-04-30 04:52] VITALS: BP 149/89; PULSE 72; O2SAT 98
[2025-04-30 05:07] LABS: Hematocrit 35.0 % (36-47); Hemoglobin 12.00 g/dL (11.27-16.99); Mean Corpuscular HGB Conc 34.3 g/dL (30-55); Mean Corpuscular Hemoglobin 31.7 pg (27-33); Mean Corpuscular Volume 92.6 fl (85-98); Platelet Count 432 10^3/cmm (157-399); Red Blood Count 3.78 10^6/uL (3.85-5.65); White Blood Count 20.60 10^3/uL (3.29-11.43)
[2025-04-30] MEDS: PRENATAL VIT NO.130/IRON/FOLIC 1 EACH TABLET PO (09:37)
[2025-04-30 11:12] VITALS: BP 152/93; PULSE 79; RESP 18; TEMP 36.7; O2SAT 99
--- NOTE | 2025-04-30 14:22 | ANE.PACU2 ---
Inpatient post-anesthesia follow up: Airway intact: Yes Vital signs: Temperature 98.2 F Pulse Rate 78 Respiratory Rate 16 Blood Pressure 139/90 Pulse Oximetry 98 Oxygen Delivery Me thod Room Air Oxygen Flow Rate Fraction of Inspir ed Oxygen Hydration adequate: Yes Nausea and vomiting: No Pain level: 2 Mental status: Baseline Epidural Start/End: Epidural Start Date: 04/29/25 Epidural Start Time: 11:03 Epidural End Date: 04/29/25 Epidural End Time: 18:10
[2025-04-30 17:04] VITALS: BP 145/94; PULSE 80; RESP 16; O2SAT 98
[2025-04-30 20:10] VITALS: BP 139/90; PULSE 78; RESP 16; TEMP 36.8; O2SAT 98
--- NOTE | 2025-05-19 20:47 | PM.OBGYDC ---
Discharge Providers INFORMATION SECURITY CONSULTANT Date of Admission: 04/29/25 09:30 Date of Discharge: 05/19/25 Attending Provider at Admission: Juan Lee MD Attending Provider at Discharge: Juan Lee MD Reason for Visit Reason for Visit: contractions, possible rupture of membranes Hospital Course Hospital Course Date of delivery: April 29, 2025 Pre-delivery diagnoses: Advanced maternal age 40 weeks 5 days gestational ageHistory of preeclampsia Hepatitis C positive History of positive STD, trach, treated on 11/24/2024 Smoker during Post-delivery diagnoses: Advanced maternal age 40 weeks 5 days gestational ageHistory of preeclampsia Hepatitis C positive History of positive STD, trach, treated on 11/24/2024 Smoker during Baby boy 8 8 approximately 9 pounds, meconium stain fluid. Procedure: Normal spontaneous vaginal delivery at term without augmentation after epidural. Delivering Physician: Jesus BILL Findings: EBL 275 mL Baby boy 8 8 approximately 9 pounds, meconium stain fluid. Maternal recovery with with instructions Information Peripartum Data: Delivery Method: Vaginal Laceration description: None Episiotomy description: None complications: none Additional Peripartum Information: Patient is a 39year-old , admitted at 40 5/7 weeks gestation due to SROM at home. Cervix was 3cm dilated, 85% effaced, and head at -2 station upon admission. GBS negative. Rh positive.Patient received an epidural early in labor. Labor progressed well, with cervical dilation reaching 10 cm and the head descending to +2 station. The rest of the body followed without difficulty. AF with moderate to heavy meconium staining. The baby is a healthy male, weighing around 9 lbs, with scores of 8 at 1 minute and 8 at 5 minutes. The placenta was delivered spontaneously and intact after one minute of delayed cord clamping. Estimated blood loss was 275 mL. The patient tolerated the procedure well and is currently stable in the recovery room. No lacerations seen on inspection of perineum and vagina. Minimal bleeding noted. Physical Exam Urinary Catheter Management: Chappell: Cath Placed During This Visit: yes, but has since been removed by the nurse Reason for Continuing Indwelling Catheter: Decision to DC Catheter Urinary Catheter Date of Insertion: 04/29/25 Urinary Catheter Time of Insertion: 12:05 Date Urinary Catheter Removed: 04/29/25 Time Urinary Catheter Discontinued: 14:35 History History History 11 Term 7 0 Miscarriages/Ectopic 3 Living Children 7 Discharge Data Studies Completed and Pending Laboratory Results WBC 20.60 10^3/uL (3.29-11.43) H 04/30/25 04:55 Corrected WBC Cancelled 04/29/25 09:45 RBC 3.78 10^6/uL (3.85-5.65) L 04/30/25 04:55 Hgb 12.00 g/dL (11.27-16.99) 04/30/25 04:55 Hct 35.0 % (36-47) L 04/30/25 04:55 MCV 92.6 fl (85-98) 04/30/25 04:55 MCH 31.7 pg (27-33) 04/30/25 04:55 MCHC 34.3 g/dL (30-55) 04/30/25 04:55 RDW 14.1 % (12.1-15.1) 04/30/25 04:55 Plt Count 432 10^3/cmm (157-399) H 04/30/25 04:55 MPV 10.6 fL (7.4-10.4) H 04/30/25 04:55 Gran % Cancelled 04/29/25 09:45 Neut % (Auto) 81.2 % 04/29/25 10:15 Lymph % (Auto) 9.9 % 04/29/25 10:15 [place] % (Auto) 7.4 % 04/29/25 10:15 Eos % (Auto) 0.4 % 04/29/25 10:15 Baso % (Auto) 0.3 % 04/29/25 10:15 Neut # (Auto) 13.21 10^3/uL (1.8-7.7) H 04/29/25 10:15 Lymph # (Auto) 1.6 10^3/uL (0.8-4.8) 04/29/25 10:15 [place] # (Auto) 1.2 10^3/uL (0.2-0.9) H 04/29/25 10:15 Eos # (Auto) 0.1 10^3/uL (0.0-0.8) 04/29/25 10:15 Baso # (Auto) 0.1 10^3/uL (0.0-0.1) 04/29/25 10:15 Absolute Gran (auto) Cancelled 04/29/25 09:45 Nucleated RBC % (auto) 0 % 04/29/25 10:15 Nucleated RBCs # 0.0 /100WBC 04/29/25 10:15 Sodium 137 mmol/L (136-145) 04/29/25 10:15 Potassium 4.0 mmol/L (3.5-5.1) 04/29/25 10:15 Chloride 103 mmol/L (98-107) 04/29/25 10:15 Carbon Dioxide 22 mmol/L (22-29) 04/29/25 10:15 Anion Gap 16.0 (5-19) 04/29/25 10:15 BUN 6 mg/dL (6-20) 04/29/25 10:15 Creatinine 0.6 mg/dL (0.5-0.9) 04/29/25 10:15 GFR Calculation 111.9 mL/min (90-130) 04/29/25 10:15 Glucose 77 mg/dL (65-115) 04/29/25 10:15 Calculated Osmolality 280 mOsm/kg (285-295) L 04/29/25 10:15 Uric Acid 5.1 mg/dL (2.4-5.7) 04/29/25 10:15 Calcium 8.9 mg/dL (8.5-10.5) 04/29/25 10:15 Total Bilirubin 0.4 mg/dL (0.15-1.2) 04/29/25 10:15 AST 18 U/L (0-32) 04/29/25 10:15 ALT 10 U/L (0-33) 04/29/25 10:15 Alkaline Phosphatase 194 U/L (35-105) H 04/29/25 10:15 Lactate Dehydrogenase 140 U/L (135-214) 04/29/25 10:15 Total Protein 6.7 g/dL (6.6-8.7) 04/29/25 10:15 Albumin 3.2 g/dL (3.5-5.2) L 04/29/25 10:15 Globulin 3.5 g/dL (1.3-4.6) 04/29/25 10:15 U Random Total Protein 4 mg/dL 04/29/25 09:35 Urine Creatinine 16 mg/dL (28-217) L 04/29/25 09:35 Protein/Creatinin Ratio 0.25 mg/mg CR 04/29/25 09:35 Urine Opiates Screen Negative ng/mL (Negative) 04/29/25 09:35 Ur Barbiturates Screen Negative ng/mL (Negative) 04/29/25 09:35 Ur Phencyclidine Scrn Negative ng/mL (Negative) 04/29/25 09:35 Ur Amphetamines Screen Negative ng/mL (Negative) 04/29/25 09:35 U Benzodiazepines Scrn Negative ng/mL (Negative) 04/29/25 09:35 Urine Cocaine Screen Negative ng/mL (Negative) 04/29/25 09:35 U Marijuana (THC) Screen Positive ng/mL (Negative) H 04/29/25 09:35 Blood Type A Positive 04/29/25 10:15 Rho(D) Type Rh positive 04/29/25 10:15 Antibody Screen Negative 04/29/25 10:15 Vitals Last Vital Signs Temp 98.2 F 04/30/25 20:10 Pulse 78 04/30/25 20:10 Resp 16 04/30/25 20:10 BP 139/90 04/30/25 20:10 Pulse Ox 98 04/30/25 20:10 O2 Del Method Room Air 04/30/25 20:10 Results Labs OB ([facility]): Obstetrics US 04/17/25 Obstetrics US/Biophysical Profile 04/10/25 Blood Type A Positive 04/29/25 Antibody Screen Negative 04/29/25 Hct, (36-47) 35.0 % L 04/30/25 Hgb, (11.27-16.99) 12.00 g/dL 04/30/25 Rho(D) Type Rh positive 04/29/25 Plt Count, (157-399) 432 10^3/cmm H 04/30/25 Hep Bs Antigen, (Nonreactive) Non-reactive 10/18/24 Hepatitis C Antibody, (Nonreactive) Reactive H 10/18/24 Rubella IgG Antibody, (0.0-10.0) 106.5 IU/mL H 10/18/24 RPR, (Nonreactive) Nonreactive 10/18/24 HIV 1&2 Ab & HIV 1 Ag, (Non-Reactiv) Non-reactive 10/18/24 TSH, (0.27-4.20) 1.42 uIU/mL 10/18/24 Glucose 1 Hr 50 gm, (85-140) 122 mg/dL 02/16/25 Uric Acid, (2.4-5.7) 5.1 mg/dL 04/29/25 Ser , Semi-Qnt 651663.00 mIU/mL 09/23/24 HCG, Qual, (Negative) Positive H 10/05/24 Urine Opiates Screen, (Negative) Negative ng/mL 04/29/25 Ur Barbiturates Screen, (Negative) Negative ng/mL 04/29/25 Ur Phencyclidine Scrn, (Negative) Negative ng/mL 04/29/25 Ur Amphetamines Screen, (Negative) Negative ng/mL 04/29/25 U Benzodiazepines Scrn, (Negative) Negative ng/mL 04/29/25 Urine Cocaine Screen, (Negative) Negative ng/mL 04/29/25 U Marijuana (THC) Screen, (Negative) Positive ng/mL H 04/29/25 Micro Urine Specimen 10/18/24 Pap Smear Interpret See note 10/28/24 Discharge Plan Discharge Patient Disposition: Home Condition: Stable Prescriptions: New ibuprofen 800 mg Tablet 800 mg PO TID Qty: 10 0RF docusate sodium 100 mg Capsule 100 mg PO BID Qty: 20 0RF Continued M- Plus 27 mg iron- 1 mg tablet See Rx Instructions .ROUTE .COMPLEX Qty: 90 2RF Dose Instruction: TAKE 1 TABLET BY MOUTH EVERY DAY Rx Instructions: TAKE 1 TABLET BY MOUTH EVERY DAY labetalol 200 mg Tablet 200 mg PO BID Qty: 30 1RF Discontinued aspirin 81 mg tablet,delayed release (DR/EC) 81 mg PO DAILY promethazine 12.5 mg tablet 12.5 mg PO TID PRN (Reason: nausea and vomiting) Qty: 60 1RF Rx Instructions: take one tab every 8 hours as needed for nausea Discharge Order = DC NOW: Discharge Order (Routine); Ordered 04/30/25 Ordered By: Juan Lee Referrals: Juan Lee MD [Physician, INFORMATION SECURITY CONSULTANT] - 3 weeks Referral Note: * Please call first thing Thursday morning to make you 3 week appointment Discharge Diet: Regular Discharge Activity: Increase activity as tolerated Patient Instructions: Depression (DC), Bleeding (DC), Preeclampsia and Eclampsia After Delivery (GEN), Hemorrhage (DC), OB Discharge Report, OB Food/Drug Interaction Guide, OB Home Care, OB [facility] Parent Packet, Patient Portal & Dany Instructions, Abnormal Bleeding Activity Restrictions/Additional Instructions: Pelvic rest 6wks Assessment: 39-year-old status postnormal spontaneous vaginal delivery at 40 weeks 5 days ,pt doing well. Baby receiving prophylactic antibiotics with plans for 48-hour treatment. Pain is well controlled with meds. Patient's blood pressures continue to be in normal range while receiving labetalol 200 mg p.o. twice daily. Will continue current labetalol dose until follow-up visit in 1 week. afebrile. No chills. Scant lochia. Voiding. Up and walking. Eating regular diet. No N/V. Voiding spontaneously. Passing gas. No Complaints Plan of Treatment: -Discharge home today with instructions and follow-up. Patient allowed to room until baby discharged home. -Continue current labetalol with home blood pressure monitoring and return for blood pressure follow-up in clinic in 1 week. - Notify if developing symptoms of headaches visual disturbance or abdominal pain or high blood pressure readings at home. Discharge Attestations INFORMATION SECURITY CONSULTANT Time Spent in Discharge Care*: less than 30 min Coding Level of Care Code Acute Code for Chg Fwd
== END 2025-04-30 20:10 | disposition home or self-care (01) | DRG 806 ==
LOC: OPOB 15:38 → OBGYN 15:38
PROVIDERS: Admitting Provider Obstetrics & Gynecology; Visit Provider Obstetrics & Gynecology
DX: O48.0 Post-term pregnancy (principal); O98.42 Viral hepatitis complicating childbirth; Z37.0 Single live birth; Z3A.40 40 weeks gestation of pregnancy; B19.20 Unspecified viral hepatitis C without hepatic coma; O99.334 Smoking (tobacco) complicating childbirth; O77.0 Labor and delivery complicated by meconium in amniotic fluid; O09.523 Supervision of elderly multigravida, third trimester
CPT/HCPCS: 12345; 36415; 51702; 59025; 59409; 80053; 80306; 82570; 83615; 83986; 84156; 84550; 85025; 85027; 86850; 86900; 99211; J2590; J2795; J3490; J7120; J9999